=== PATIENT | female | born 1990 | race Hispanic/Latino ===

== ENCOUNTER 2017-12-22 06:54 | Emergency (ER) | payer MEDICAID, SELFPAY | END 2017-12-22 08:14 | disposition home or self-care (01) | LOC: ERS 06:54 | DX: J06.9 Acute upper respiratory infection, unspecified (principal); R04.0 Epistaxis; R09.81 Nasal congestion | CPT/HCPCS: 99283 ==

== ENCOUNTER 2018-11-07 06:57 | Emergency (ER) | payer SELFPAY ==
[2018-11-07] MEDS ORDERED: Ketorolac Tromethamine 60 MG/2 ML VIAL ONE (07:25)
[2018-11-07] MEDS ORDERED: Acetaminophen 500 MG TAB ONE (07:25)
[2018-11-07 08:00] LABS: Bilirubin Negative (Negative); Blood, Urine Negative (Negative); Clarity CLEAR (Clear); Glucose, Urine (Dipstick) Negative (Negative); Leukocyte Small (Negative); Nitrite Negative (Negative); Protein, Urine (Dipstick) Negative (Neg-Trace); Specific Gravity, Urine 1.022 (1.002-1.036); Urobilinogen 0.2 mg/dL (0.2-1.0)
[2018-11-07 08:02] LABS: Bacteria/HPF 1+ HPF (None Seen); Hyaline Casts/LPF 0-3 HYALINE CAST LPF (0-3 Hyaline); Pathc Cast-AUWi Flag 0.43 (0-2.49); RBC/HPF 0-3 HPF (0-3)
== END 2018-11-07 09:05 | disposition home or self-care (01) ==
LOC: ERS 06:57
DX: O99.89 Other specified diseases and conditions complicating pregnancy, childbirth and the puerperium (principal); M54.5 Low back pain
CPT/HCPCS: 81003; 81015; 87086; 99283; J1885

== ENCOUNTER 2019-04-27 08:46 | Day surgery (SDC) | payer OTHER ==
[2019-04-27 09:20] VITALS: BMI 44.6
--- NOTE | 2019-04-27 10:13 | PDOC.FPROB ---
FMR OB H&P: HPI - History of Present Illness Chief Complaint: contractions Indentification: 28-yo female at 37.3 wga by LMP c/w 13.3 wk sono History of Present Illness: Patient w/ complication of A2GDM, on glyburide, is here w/ contractions which started this AM ~0500. Describes them as painful, intermittent, and as much pressure in her pelvis. Denies VB, LOF. Endorses movement. Has not had anything to eat today and only drank a little water. Cervix was checked in clinic on Tuesday 04/24 and was closed at that time. Otherwise, she has no concerns and feels well. Scheduled for repeat C/S on 2018. Primary Care Physician: Dr. Winter Cleaning, [facility] FMR OB H&P: Current - Care : 2 Para: 1001 Gestational age: 37.3 wga Due date: 05/15/2019, sched c/s 05/10/2019 Dating Criteria: LMP c/w 13.3 week sono Course/Complications: A2GDM on glyburide 2.5 mg daily - OB Labs HIV: negative RPR: negative HepBsAg: negative Rubella: immune Quad screen: negative Urine drug screen: negative Gonorrhea: negative Chlamydia: negative Pap Smear: NILM, 2018 3 hour GTT: 90/149/180/131 A1c: 6.0 FMR OB H&P: History - Past Medical History PMH: GERD - OB History OB History: G1: IOL at 41.0 wga, emergency C/S for 6 min decel NR-FHT. Vertical skin incision, LT-uterine incision. Healthy infant. 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 Last pap in 2018 NILM. - Surgical History Sx History: x1 - Social History Social History: Denies alcohol, tobacco, drug use. - Family History Family History: None significant. FMR OB H&P: Medications - Current Home Medications: Medication Instructions Recorded Confirmed Type Vit No.130/Iron/Folic 1 each PO DAILY 09/26/16 01/17/17 History [ Vitamins] Acetaminophen With Codeine 1 tablet PO Q8HR PRN #30 tablet 01/21/17 Rx [Tylenol with Codeine #3] Docusate [Colace] 100 mg PO BID #60 cap 01/21/17 Rx Ferrous Sulfate [Feosol] 325 mg PO BID #60 tab 01/21/17 Rx Vitamin 1 tab PO DAILY tab 01/21/17 Rx Allergies/Adverse Reactions: Allergies Allergy/AdvReac Type Severity Reaction Status Date / Time No Known Allergies Allergy Verified 01/17/17 22:27 FMR OB H&P: ROS - Review of Systems General: denies: fever/chills, fatigue Eyes: denies: vision changes, double vision ENT: denies: nasal congestion, rhinorrhea, sore throat Cardiovascular: denies: chest pain, palpitation, edema Respiratory: denies: cough, shortness of breath Gastrointestinal: denies: abdominal pain, nausea, vomiting, diarrhea, constipation Genitourinary (Female): denies: dysuria, hematuria Musculoskeletal: denies: pain, swelling Neurologic: denies: weakness, headache Integumentary: denies: itching, rash Hematologic/Lymphatic: denies: prolonged or excessive bleeding Psychological: denies: depression, anxiety FMR OB H&P: Vital Signs - Maternal Vital signs: BP 110/65, HR 83 - Heart Tones Baseline: 140 (Reassuring) Variability: moderate Acceleration: present Deceleration: absent Lyerly contractions every: not adequately detected on the monitor FMR OB H&P: Physical Exam - Physical Exam General: NAD, awake, alert and oriented HEENT: normocephalic and atraumatic, grossly normal hearing Neck: supple, trachea midline Chest: non-tender to palpation Heart: RRR, normal S1/S2, no murmurs/rubs/gallops, no edema General: CTAB, no respiratory distress Abdomen: soft, gravid, non-tender, bowel sound present, other (Brayan's attempted, obese abdomen) Skin: no rash Psychiatric: intact recent and remote memory, normal mood and affect - Pelvic Exam Vulva: no discharge, no blood SVE: Closed/40%/-3, soft, posterior Abdalla score: N/A Membranes: Intact Presentation: Per patient, cephalic & vertex at last U/S. FMR OB H&P: Results - Labs Lab results: Laboratory Results - last 24 hr 04/27/19 09:33 POC Glucose 91 FMR OB H&P: A/P Disposition: Monitor on OB triage. Discussion: Date/Time: 04/27/19 1012 28-yo female w/ Ob Hx of A2GDM at 37.3 wga by LMP c/w 13.3 wk sono, presents for: Contractions - Rule out labor - Initial check close/40/-3 - Glucose 91, WNL - Monitor for 2 hours on continuous tocometry & EFM - Recheck in 2 hours for increased contraction frequency or cervical change. This H&P was discussed with Dr. Quinn and Dr. Pelayo, who agree with the above documentation and plan. Signature: Ranjana Luque MD PGY-1
--- NOTE | 2019-04-27 10:14 | PDOC.EVN ---
Event Note - Event Note Event Note: OBGYN Faculty History and Physical Location: Triage Time: 1013 CC; [facility] HPI: 28 yo CS x 1 (desires repeat, and scheduled) here for possible CTX. No VB, no LOF, good FM. She states GDM with this and is on 2.5mg Glyburide qD. Review of Systems: Complete ROS completed and as per HPI Past medical: GDM this Medications: Gylburide, prenatals Surgueries: CS for NRFHTS at 41 weeks Social: negative PHYSICAL: BP 10/65 83 afebrile 18 NAD Gravid abd S=D CX closed/thick/high no VB, no LOF monitors: 140s, mod varaibility, reassuring; irreg CTX Assessment: early term, CS x1 (scheduled for repaet soon) with possible CTX...cx closed at this time. Plan: 1. Check Blood sugars: done..91. 2. Labor obs X 1-2 hours. 3. As CX closed, do not suspect true labor at this time.
[2019-04-27] MEDS ORDERED: hydrALAZINE 20 MG/ML VIAL SLOW IVP PRN (11:29)
--- NOTE | 2019-04-27 11:31 | PDOC.EVN ---
Event Note - Event Note Event Note: no contractions on toco patient feels some contractions in back re-check closed/40/-3 no change will d/c home, f/u at [facility] on Wednesday labor and return precautions discussed
== END 2019-04-27 11:30 | disposition home health service (06) ==
LOC: L&D/OP 08:46
PROVIDERS: ATTEND Student in an Organized Health Care Education/Training Program
DX: O47.1 False labor at or after 37 completed weeks of gestation (principal); Z3A.37 37 weeks gestation of pregnancy
CPT/HCPCS: 36416

== ENCOUNTER 2019-04-28 13:51 | Day surgery (SDC) | payer OTHER ==
[2019-04-28 14:19] VITALS: BMI 44.9
--- NOTE | 2019-04-28 16:43 | PDOC.FPROB ---
FMR OB H&P: Medications - Current Home Medications: Medication Instructions Recorded Confirmed Type Vit No.130/Iron/Folic 1 each PO DAILY 09/26/16 04/28/19 History [ Vitamins] glyBURIDE [Micronase] 1 cap PO HS 04/28/19 04/28/19 History Allergies/Adverse Reactions: Allergies Allergy/AdvReac Type Severity Reaction Status Date / Time No Known Allergies Allergy Verified 01/17/17 22:27 FMR OB H&P: A/P - Problem List (1) Decreased movement affecting management of in third trimester Status: Acute Code(s): O36.8130 - DECREASED MOVEMENTS, THIRD TRIMESTER, UNSP Discussion: Date/Time: 04/28/19 1642 PCP: Carlyle HPI: 28-yo female at 37.3 wga by LMP c/w 13.3 wk sono presenting for abdominal pain. She was seen yesterday in triage and states the pain has continued. She is complaining of sharp pains in the upper and lower abdomen. The pain comes and goes but she cannot put a frequency to it. She does not think it is contractions. Pain is worse with movement. She recently took her child to the park and walked around a lot which she does not usually do. Denies fevers, chills, sweats, N/V/D, burning or blood with urination. Pain is worse with movment and better with rest. She is worried she will need another emergent and wants to make sure everything is ok. Says she has not felt baby moving as much today. She affirms movement, denies cxns, ROM, bleeding/discharge. Denies CUEVAS, visual changes, SOB, or swelling. History: OB hx: G1: IOL at 41.0 wga, emergency C/S for 6 min decel NR-FHT. Vertical skin incision, LT-uterine incision. Healthy . PMH: gerd PSH: c/s x1 Meds: PNV, glyburide All: NKDA Soc Hx: denies smoking, alcohol, drugs Fam Hx: denies downs, congenital defects REVIEW OF SYSTEMS: Gen: no fever, chills, or sweats Neuro: no numbness/tingling, no weakness, denies headache ENT: denies congestion Eyes: no visual changes Resp: no cough, no SOB, no wheeze Card: denies chest pain, no palpitations GI: see hpi : no dysuria, no hematuria Skin: no rash, no erythema Psych: denies hx anxiety/depression Vitals: T: 99.0 R: 20 BP: 115/65 P:6 at: 98% on RA PHYSICAL EXAMINATION: General: NAD, alert and oriented x3 HEENT: EOMI, normal sclera Neck: Supple. Full ROM. Heart/Cardiovascular System: RRR, Cap refill < 3 seconds, no rub, no murmur Lungs/Respiratory System: clear to auscultation bilaterally. No increased work of breathing. Room air. Abdomen/Gastro-Intestinal System: no abdominal tenderness, normal bowel sounds, Gravid Extremities: Warm extremities. No cyanosis or edema. Neuro: No gross deficits appreciated Psychiatry: Awake, Alert and cooperative with exam Skin: No lesions, rashes Musculoskeletal: Full ROM A/P: 28-yo female at 37.3 wga by LMP c/w 13.3 wk sono presenting for abdominal pain FHT: 140 baseline, mod variability, no decels, accels present [place]ye: no contractions # Round Ligament Pain - BPP ordered 2/2 decreased movement, 8/8 vertex - FHT reassuring - Suspect round ligament pain 2/2 increased activity, advised patient to rest, take tylenol TID, and drink 5-6 bottles of water per day - Has followup in clinic in 3 days - return to care for worsening pain, contractions, fever, inability to tolerate PO, bleeding or concern # GDMA2 - on glyburide Addendum - Attending - Attending Attestation Date/Time: 05/01/19 0112 I personally evaluated the patient and discussed the management with Dr. Quinn I agree with the History, Examination, Assessment and Plan documented above with any addition or exceptions noted below. vital signs reviewed and with in normal limits. Pt reports good control of GDM on glyburide abdominal pain with onset after taking daughter to the park. pt worried about baby. second visit in two days. Came yesterday for contractions PE: NAD abdomen soft, gravid, tenderness with deviation of the uterus consistent with musculoskelatal pain- reproduces chief complaint fetus with 8/8 BPP a/P musculoskeletal pains of - reassurance given fetus reassuring term precautions given discharged home.
--- NOTE | 2019-04-28 17:23 | ULT ---
ULTRASOUND BIOPHYSICAL PROFILE: DATE: 04/28/2019 HISTORY: 28-year-old female in third trimester experiencing decreased movement. FINDINGS: breathin tone: 2 movement: 2 Amniotic fluid volume: 2 IMPRESSION: Normal biophysical profile score of 8 out of 8, excluding the nonstress test.
[2019-04-28 17:29] VITALS: BP 115/65; TEMP 98.6
== END 2019-04-28 17:25 | disposition home health service (06) ==
LOC: L&D/OP 13:51
PROVIDERS: ATTEND Obstetrics & Gynecology
DX: O26.893 Other specified pregnancy related conditions, third trimester (principal); R10.30 Lower abdominal pain, unspecified; R10.10 Upper abdominal pain, unspecified; O36.8130 Decreased fetal movements, third trimester, not applicable or unspecified; O24.415 Gestational diabetes mellitus in pregnancy, controlled by oral hypoglycemic drugs; O99.613 Diseases of the digestive system complicating pregnancy, third trimester; K21.9 Gastro-esophageal reflux disease without esophagitis; Z79.84 Long term (current) use of oral hypoglycemic drugs; Z3A.37 37 weeks gestation of pregnancy
CPT/HCPCS: 36416; 76819; 99282

== ENCOUNTER 2019-05-10 09:27 | Inpatient (IN) | payer MEDICAID, OTHER, SELFPAY ==
--- NOTE | 2019-05-10 07:13 | PDOC.FPROB ---
FMR OB H&P: HPI - History of Present Illness Chief Complaint: scheduled repeat section Indentification: 28 y/o @ 39.2 WGA by LMP c/w 13.3 wk sono History of Present Illness: Patient presents for a scheduled repeat section. She endorses good movement. Denies vaginal bleeding, d/c, contractions, LOF. She reports her blood sugars have been well controlled. Primary Care Physician: Dr. 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 abnormal pap or STI's - Surgical History Sx History: pLTCS with vertical skin - Social History Social History: Denies tobacco, EtOH, or drug use - Family History Family History: Noncontributory FMR OB H&P: Medications - Current Home Medications: Medication Instructions Recorded Confirmed Type Vit No.130/Iron/Folic 1 each PO DAILY 09/26/16 04/28/19 History [ Tablet] Ferrous Sulfate [Feosol] 325 mg PO BID #60 tab 05/12/19 Rx Ibuprofen [Motrin] 800 mg PO Q8HR PRN #60 tab 05/12/19 Rx Allergies/Adverse Reactions: Allergies Allergy/AdvReac Type Severity Reaction Status Date / Time No Known Allergies Allergy Verified 01/17/17 22:27 FMR OB H&P: ROS - Review of Systems General: denies: fever/chills, weight/appetite/sleep changes Eyes: denies: vision changes, double vision ENT: denies: nasal congestion, rhinorrhea Cardiovascular: denies: chest pain, edema Respiratory: denies: cough, shortness of breath Gastrointestinal: denies: nausea, vomiting, diarrhea Genitourinary (Female): denies: dysuria, vaginal discharge, vaginal bleeding, contractions Musculoskeletal: denies: pain, tenderness Neurologic: denies: numbness, weakness Integumentary: denies: itching, rash Endocrine: denies: cold intolerance, heat intolerance Hematologic/Lymphatic: denies: prolonged or excessive bleeding, enlarged lymph nodes Psychological: denies: depression, anxiety FMR OB H&P: Vital Signs - Maternal Vital signs: BP 115/71, HR 87, Weight 116kg - Heart Tones Baseline: 150 Variability: moderate Acceleration: present Deceleration: absent Category: category 1 [place] contractions every: none FMR OB H&P: Physical Exam - Physical Exam General: NAD, awake, alert and oriented HEENT: EOMI, MMM, conjunctiva clear, no scleral icterus, grossly normal vision, grossly normal hearing Neck: supple, no LAD Heart: RRR, normal S1/S2, no murmurs/rubs/gallops, pulses present, no edema General: CTAB, no respiratory distress, good air movement, no rales/rhonchi, no wheezing Abdomen: soft, gravid, non-tender Musculoskeletal: pulses present, FROM in all four extremities Neurological: cranial nerves II through XII intact, no focal deficit Skin: good tugor, capillary refill <2 seconds Lymphatic: no unusual bruising or bleeding, no purpura Psychiatric: intact recent and remote memory, good judgement and insight FMR OB H&P: A/P - Problem List (1) Term Status: Acute Code(s): Z34.90 - ENCNTR FOR SUPRVSN OF NORMAL , UNSP, UNSP TRIMESTER Assessment and Plan: Patient presents for scheduled rLTCS -NPO -Consult anesthesia for spinal -Ancef 2g -LR @ 125 -Type and screen (2) H/O section Status: Acute Code(s): Z98.891 - HISTORY OF UTERINE SCAR FROM PREVIOUS SURGERY Assessment and Plan: Plan as above (3) White classification A2 gestational diabetes mellitus Status: Acute Code(s): O24.419 - GESTATIONAL DIABETES MELLITUS IN , UNSP CONTROL Assessment and Plan: Pt well controlled on glyburide 2.5mg -Will check single glucose prior to Disposition: Admit to L&D for scheduled section Discussion: Date/Time: 05/10/19 0711 This H&P was discussed with Dr. Abad who agrees with the above documentation and plan. Signature: Winter Cleaning MD, PGY-3 Addendum - Attending - Attending Attestation Date/Time: 05/12/19 8346 I personally evaluated the patient and discussed the management with Dr. Cleaning on 05/10/19. I agree with the History, Examination, Assessment and Plan documented above with any addition or exceptions noted below. 28 y/o @ 39.2 here for repeat Csxn. Vertical skin incision, will re- enter via same.
[2019-05-10] MEDS ORDERED: CEFAZOLIN 2 GM in Premix Bag 1 BAG IVPB SCH (09:58)
[2019-05-10] MEDS ORDERED: Promethazine HCl 25 MG/ML VIAL IM PRN ×2 (09:58→13:31)
[2019-05-10] MEDS ORDERED: Bicitra 30 ML UDCUP PO SCH (09:58)
[2019-05-10] MEDS ORDERED: Lactated Ringer's 1,000 ML IV SCH (09:58)
[2019-05-10] MEDS ORDERED: hydrALAZINE 20 MG/ML VIAL SLOW IVP PRN ×2 (09:58→15:31)
[2019-05-10] MEDS ORDERED: Ondansetron PF 4 MG/2 ML Vial IVP PRN ×2 (09:58→13:31)
[2019-05-10 10:12] VITALS: BMI 45.3
[2019-05-10 11:08] LABS: Hemoglobin 12.9 g/dL (12.0-16.0); Mean Corpuscular HGB CONC 34.9 g/dL (32.0-36.0); Mean Corpuscular Hemoglobin 30.1 pg (27.0-31.0); Mean Corpuscular Volume 86.2 fL (78.0-98.0); Mean Platelet Volume 9.6 fL (7.4-10.4); Platelet Count 189 thou/uL (130-400); RBC Distribution Width 12.2 % (11.5-14.5); White Blood Cell (WBC) Count 8.8 thou/uL (4.8-10.8)
[2019-05-10 11:49] LABS: HBSAg Index 0.14 S/CO (0-0.99); Hep B Surf Ag Non-Reactive S/CO (NonReactive); Syphilis Antibody Nonreactive (Nonreactive); Syphilis Antibody Index 0.02 S/CO (<1.00 Non-Reactive)
[2019-05-10] MEDS ORDERED: MORPHINE 5 MG/10 ML PF VIAL ONE (12:03)
[2019-05-10] MEDS ORDERED: Fentanyl 100 MCG/2 ML VIAL ONE (12:03)
[2019-05-10] MEDS ORDERED: Oxytocin 10 UNITS/ML VIAL ONE (12:04)
[2019-05-10] MEDS ORDERED: Ketorolac Tromethamine 30 MG/ML VIAL ONE (12:04)
[2019-05-10] MEDS ORDERED: PHENYLEPHRINE-NS 100 MCG/ML 10 ML SYRINGE ONE (12:04)
[2019-05-10] MEDS ORDERED: ePHEDrine/0.9% NaCl/PF SYRINGE 50 mg/10 ml ONE (12:04)
[2019-05-10] MEDS ORDERED: Dexamethasone 4 mg/ml Vial ONE (12:04)
[2019-05-10] MEDS ORDERED: Ondansetron PF 4 MG/2 ML Vial ONE (12:04)
[2019-05-10] MEDS ORDERED: Lidocaine 2% PF Inj 2 ML VIAL ONE (12:29)
[2019-05-10] MEDS ORDERED: Midazolam HCl 2 mg/2 ml Vial ONE (13:08)
[2019-05-10] MEDS ORDERED: L&D-Morphine 4 MG/ML VIAL SLOW IVP PRN (13:31)
[2019-05-10] MEDS ORDERED: Naloxone HCl 0.4 mg/ml Vial IV PRN (13:31)
[2019-05-10] MEDS ORDERED: Promethazine HCl 25 MG SUPP PR PRN (13:31)
[2019-05-10] MEDS ORDERED: Meperidine HCl/PF 25 MG/ML VIAL SLOW IVP PRN (13:31)
[2019-05-10] MEDS ORDERED: diphenhydrAMINE 50 MG/ML VIAL IVP PRN (13:31)
[2019-05-10] MEDS ORDERED: Ondansetron HCl/PF 4 MG/2 ML Vial IVP PRN (13:31)
[2019-05-10] MEDS ORDERED: HYDROmorphone 2 MG/ML VIAL SLOW IVP PRN (13:31)
[2019-05-10] MEDS ORDERED: Naloxone HCl 0.4 mg/ml Vial IVP PRN ×2 (13:31)
[2019-05-10] MEDS ORDERED: Ketorolac Tromethamine 30 MG/ML VIAL IVP PRN (13:31)
[2019-05-10] MEDS ORDERED: Communication Order-Pharmacy FS SCH (13:45)
--- NOTE | 2019-05-10 13:51 | PDOC.OPDEL ---
OB Operative/Delivery Note Delivery Dr/Surgeon: Dr. Cleaning and Dr. Shelby with Dr. Abad attending Pre-Delivery Diagnosis: scheduled section Procedure/Post Delivery Dx: repeat low transverse CS Weeks gestation: 39 (39w2d) Anesthesia: spinal - Findings A Sex: female - Additional Findings/Plan Placenta delivered: spontaneous findings: low transverse hysterotomy without extension, normal tubes, normal ovaries Estimated blood loss: 500 Compilations/Other Findings: Preoperative Diagnosis: 1)Term intrauterine 2)Previous 3)Prior vertical skin incision 4)A2GDM Postoperative Diagnosis: 1)Term intrauterine , delivered 2)Previous 3)Prior vertical skin incision 4)A2GDM Anesthesia: spinal Indications: The patient is a 28 year old female at 39.2 weeks gestation who presents for a repeat scheduled . Procedure in Detail: After risks, benefits, and alternatives were explained to the patient, she gave informed consent. Pre-operative antibiotics included Cefazolin 2 gram IV. The patient was taken to the operating room and spinal anesthesia was initiated. She was placed in the supine position with a left tilt and prepped and draped in usual sterile fashion. A vertical midline incision was made with a scalpel and carried down to the level of the fascia which was sharply nicked. The fascial cut was extended vertically with Damon scissors. The underlying rectus muscles were sharply and bluntly dissected free. The recti were divided digitally and retracted manually. The peritoneum was entered bluntly and retracted manually. Omar O retractor was placed. A low transverse score was made with the scalpel and the uterus was entered in the midline bluntly. Clear fluid was seen. The hysterotomy was extended manually in a cephalocaudal fashion. The was noted to be vertex and was easily delivered by fundal pressure. Mouth and nares were bulb suctioned. Cord clamped and cut and grossly normal female was handed to waiting nurse. Cord blood was obtained. Placenta was manually extracted, found to be intact with 3 vessel cord and discarded. The endometrium was curetted with a dry lap. The uterus was closed with a running locking 0-monocryl. Following this hemostasis was noted. The abdomen was inspected and suctioned free of clots. The omar o retractor was removed and the hysterotomy was again noted to be hemostatic. The fascia was closed with a running non-locking 0-PDS suture. The subcutaneous tissue was irrigated and there were no bleeders. The subcutaneous layer was approximated with a combination on interrupted and running non-locking 2-0 plaingut suture in 2 layers. The skin was approximated with vicki and a wound vac was placed. All counts were correct. The patient tolerated the procedure well and was taken to the recovery room in stable condition. Delivery time: 1301 on 05/10/19 Estimated Blood Loss: 500 ml Complications: None Specimens: Cord blood sent to lab for blood type Findings: Grossly normal female infant. Grossly normal placenta with 3 vessel cord discarded. Grossly normal ovaries and fallopian tubes noted. Drains: Noble to gravity draining clear urine Post delivery plan: routine recovery Addendum - Attending - Attending Attestation Date/Time: 05/12/19 4633 I, Yoan Abad MD, personally evaluated the patient and discussed indications for the procedure described by Dr. Cleaning on 05/10/19. I directly supervised and participated in the Section and I agree with the description of procedure as documented above without any addition or exceptions.
[2019-05-10] MEDS ORDERED: Adacel (T-DAP) 0.5 ML SYRINGE IM ONE (15:31)
[2019-05-10] MEDS ORDERED: Simethicone Chewable 80 MG TAB PO PRN (15:31)
[2019-05-10] MEDS ORDERED: Lanolin Ointment 7 GM TUBE TOP PRN (15:31)
--- NOTE | 2019-05-10 16:49 | PDOC.PP ---
Post Progress Note Subjective: Patient was working on with nursery nurse. She is feeling well. Reports she has started to feel minimal pain, currently 2/10. Drinking fluids. Ambulation: no Vital Signs (12 hours) Temp Pulse Resp BP 05/10/19 09:58 98.2 F 87 20 115/71 Weight Weight 116.12 kg - Physical Examination General: NAD Cardiovascular: no m/r/g, RRR Respiratory: clear to auscultation bilaterally, non-labored breathing Abdominal: no distention, appropriately TTP Fundus firm & at: umbilicus Extremities: negative homans (B) Skin: CS incision dry & intact (some bleeding in bandage but unchanged per nurse compared to when arrived to floor) Neurological: no gross focal deficits Psychiatric: A&Ox3 Result Diagrams: 05/10/19 10:53 Additional Labs: Post Labs Blood Type A POSITIVE 05/10/19 10:53 Hep Bs Antigen Non-Reactive S/CO (NonReactive) 05/10/19 10:53 (1) care following delivery Code(s): Z39.2 - ENCOUNTER FOR ROUTINE FOLLOW-UP Status: Acute - Assessment/Plan 4 hour post op check Patient doing well. Vital signs stable. Urine output 300 mL in bag, nurse unsure when this was last dumped. No concerns at this time. Continue routine PP care.
[2019-05-10] MEDS: Docusate Calcium (SURFAK) 240 MG CAP PO SCH (23:58)
[2019-05-11] MEDS ORDERED: HYDROcodone/Acetaminophen 5/325 mg Tablet PO PRN (01:45)
[2019-05-11] MEDS: Ferrous Sulfate 325 MG TAB PO SCH ×2 (03:00→09:28)
[2019-05-11 04:58] LABS: Hemoglobin 10.9 g/dL (12.0-16.0); Mean Corpuscular HGB CONC 33.3 g/dL (32.0-36.0); Mean Corpuscular Hemoglobin 28.8 pg (27.0-31.0); Mean Corpuscular Volume 86.3 fL (78.0-98.0); Platelet Count 161 thou/uL (130-400); RBC Distribution Width 12.1 % (11.5-14.5); Red Blood Cell (RBC) Count 3.79 mill/uL (4.20-5.40); White Blood Cell (WBC) Count 12.7 thou/uL (4.8-10.8)
--- NOTE | 2019-05-11 08:07 | PDOC.PP ---
Post Progress Note Post Day #: 1 Subjective: Pt is doing well without any complaints. She denies shortness of breath, palpitations. Feels comfortable walking. State she has minimal bleeding. PO intake tolerated: yes Flatus: yes Ambulation: yes Vital Signs (12 hours) Temp Pulse Resp BP Pulse Ox 05/11/19 06:56 18 05/11/19 04:00 98.5 F 78 20 106/58 L 05/11/19 02:00 20 05/11/19 00:00 98.6 F 86 20 113/69 05/10/19 22:51 98.8 F 82 20 93/52 L 95 05/10/19 22:00 20 Weight Weight 116.12 kg - Physical Examination General: NAD Cardiovascular: no m/r/g, RRR Respiratory: clear to auscultation bilaterally, non-labored breathing Abdominal: + bowel sounds, no distention, appropriately TTP Skin: CS incision dry & intact Psychiatric: A&Ox3, normal affect Result Diagrams: 05/11/19 04:48 Additional Labs: Post Labs Blood Type A POSITIVE 05/10/19 10:53 Hep Bs Antigen Non-Reactive S/CO (NonReactive) 05/10/19 10:53 (1) care following delivery Code(s): Z39.2 - ENCOUNTER FOR ROUTINE FOLLOW-UP Status: Acute (2) delivery delivered Code(s): O82 - ENCOUNTER FOR DELIVERY WITHOUT INDICATION Status: Acute (3) White classification A2 gestational diabetes mellitus Code(s): O24.419 - GESTATIONAL DIABETES MELLITUS IN , UNSP CONTROL Status: Acute - Assessment/Plan # Post , Day #1 # Repeat , Term - pt is doing well w/o any complaints. Continue routine care for pt. Noble is removed. Pt walking, urinating well. She denies SOB, tachycardia, fever. She has no concerns. Pain well controlled. # GDM Previously well controlled on glyburide. - consider restarting as she is eating - accuchecks Addendum - Attending - Attending Attestation Date/Time: 05/12/19 7755 I personally evaluated the patient and discussed the management with Dr. Ny on 05/11/19. I agree with the History, Examination, Assessment and Plan documented above with any addition or exceptions noted below. Pain controlled. Afeb. Incision C/D/I. Woundvac in place with stable markings of advance of blood on bandage. Continue current care.
[2019-05-11] MEDS: Prenatal Vitamin 1 TAB PO SCH (09:24)
[2019-05-11] MEDS: Docusate Calcium (SURFAK) 240 MG CAP PO SCH ×2 (09:25→20:57)
[2019-05-11] MEDS: Ibuprofen 800 MG TAB PO SCH ×2 (14:09→20:57)
[2019-05-11] MEDS: HYDROcodone/Acetaminophen 5/325 mg Tablet PO PRN (16:22)
[2019-05-12] MEDS: Ferrous Sulfate 325 MG TAB PO SCH ×2 (03:34→09:34)
[2019-05-12] MEDS: HYDROcodone/Acetaminophen 5/325 mg Tablet PO PRN (05:40)
[2019-05-12] MEDS: Ibuprofen 800 MG TAB PO SCH (05:40)
--- NOTE | 2019-05-12 06:08 | PDOC.OBPPN ---
FMR OB PN: Subj - Interval History Day: 2 Indentification: FMR OB PN: Obj - Maternal Vital signs: BP: [] HR: [] RR: [] Tmax: [] Pox: []% on [] Wt: [] - Urine output I&O: 05/10/19 05/11/19 05/12/19 06:59 06:59 06:59 Intake Total 2186 600 Output Total 5075 1700 Balance -2889 -1100 FMR OB PN: Data - Labs Lab results: Laboratory Results - last 24 hr 05/11/19 05/11/19 05/12/19 16:15 21:02 05:49 POC Glucose 83 100 78 FMR OB PN: A/P - Problem List (1) care following delivery Current Visit: Yes Status: Acute Code(s): Z39.2 - ENCOUNTER FOR ROUTINE FOLLOW-UP (2) delivery delivered Current Visit: No Status: Acute Code(s): O82 - ENCOUNTER FOR DELIVERY WITHOUT INDICATION (3) White classification A2 gestational diabetes mellitus Current Visit: No Status: Acute Code(s): O24.419 - GESTATIONAL DIABETES MELLITUS IN , UNSP CONTROL Disposition: # Post , Day #2 # Repeat , Term # Wound Vac - pt is doing well w/o any complaints. Continue routine care for pt. Noble is removed. Pt walking, urinating well. She denies SOB, tachycardia, fever. She has no concerns. Pain well controlled. # GDM Previously well controlled on glyburide. - accuchecks Discussion: Date/Time: 05/12/19 0607 This H&P was discussed with [] and [] who agree with the above documentation and plan.
--- NOTE | 2019-05-12 07:10 | PDOC.PP ---
Post Progress Note Post Day #: 2 Subjective: Pt is doing well. She denies any complaints. Pain is well tolerated, 2 BM per pt, urinating well, no difficulties with ambulation. Denies chest pain, SOB. PO intake tolerated: yes Flatus: yes Ambulation: yes Vital Signs (12 hours) Temp Pulse Resp BP Pulse Ox 05/12/19 00:00 98.3 F 68 18 117/65 05/11/19 20:00 97.8 F 84 20 116/56 L 96 Weight Weight 116.12 kg - Physical Examination Cardiovascular: no m/r/g, RRR Respiratory: clear to auscultation bilaterally, non-labored breathing Abdominal: + bowel sounds, appropriately TTP Skin: CS incision dry & intact, no rash Deviation from normal: Wound vac appropriately placed without change in bleeding ramirez Neurological: no gross focal deficits Psychiatric: A&Ox3, normal affect Result Diagrams: 05/11/19 04:48 Additional Labs: Post Labs Blood Type A POSITIVE 05/10/19 10:53 Hep Bs Antigen Non-Reactive S/CO (NonReactive) 05/10/19 10:53 (1) care following delivery Code(s): Z39.2 - ENCOUNTER FOR ROUTINE FOLLOW-UP Status: Acute (2) delivery delivered Code(s): O82 - ENCOUNTER FOR DELIVERY WITHOUT INDICATION Status: Acute (3) White classification A2 gestational diabetes mellitus Code(s): O24.419 - GESTATIONAL DIABETES MELLITUS IN , UNSP CONTROL Status: Acute - Assessment/Plan # Post , Day #2 # Repeat , Term # Wound Vac - pt is doing well w/o any complaints. Continue routine care for pt. Noble is removed. Pt walking, urinating well, endorsed 2 BM. She denies SOB, tachycardia , fever. She has no concerns. Pain well controlled. Wound vac appropriately placed w/o change in dressing markings. Continue to encourage ambulation. Could consider discharge. # GDM Previously well controlled on glyburide. - BG is WNL, will not restart medication at this time. - accuchecks Addendum - Attending - Attending Attestation Date/Time: 05/12/19 [id number] I personally evaluated the patient and discussed the management with Dr. Ny. I agree with the History, Examination, Assessment and Plan documented above with any addition or exceptions noted below. Pain controlled. Afeb. Incision C/D/I. Stable for d/c home.
[2019-05-12] MEDS: Prenatal Vitamin 1 TAB PO SCH (09:33)
[2019-05-12] MEDS: Docusate Calcium (SURFAK) 240 MG CAP PO SCH (09:33)
[2019-05-12 12:00] VITALS: BP 117/58; TEMP 97.9
== END 2019-05-12 12:55 | disposition home or self-care (01) | DRG 788 ==
LOC: L&D 09:27 → 3SW 14:04 → L&D 14:10 → 3SW 17:06
PROVIDERS: ADMIT Family Medicine; ATTEND Family Medicine
PROC: 10D00Z1 Extraction of Products of Conception, Low, Open Approach (ICD-10-PCS; principal; 2019-05-10)
DX: O34.212 Maternal care for vertical scar from previous cesarean delivery (principal); Z3A.39 39 weeks gestation of pregnancy; Z37.0 Single live birth; O24.425 Gestational diabetes mellitus in childbirth, controlled by oral hypoglycemic drugs
CPT/HCPCS: 36415; 36416; 51702; 85027; 86780; 86850; 86900; 86901; 87340; 90715; J0690; J1100; J1200; J1885; J2001; J2250; J2274; J2405; J2590; J3010; J3490